=== PATIENT | female | born 1940 | race Caucasian/White ===

== ENCOUNTER → 2016-08-17 | Outpatient (CLI) | payer MEDICARE, OTHER ==
[2014-12-29 11:10] VITALS: BP 142/67
[~2016-08-17] MED LIST: ALEN70TA5 PO; AMLO5TAB2 PO; ASPI81TA2 PO; ATOR20TA58 PO; BUPIVACAINE MPF 0.25% 10 ML VIAL. ONE; CELE200C PO; Cefpodoxime Proxetil PO; ESOM40CA PO; ESOM40CA25 PO; ESTR0.5T PO; FENT1PAT21 TD; FLUC100T7 PO; GUAR1PAC2 PO; HYDR-2672 PO; HYDR-2762 PO; LISI-334 PO; LISI40TA PO; METO5TAB PO; MV,C1TAB19 PO; RANI300C PO; SERT100T8 PO; methylPREDNISolone ACETATE 40 MG/ML VIAL. ONE
--- NOTE | 2016-08-18 12:10 | PAIN ---
DATE OF SERVICE: 08/17/2016 DIAGNOSIS: Lumbar spondylosis with lumbar radiculopathy and post-lumbar laminectomy syndrome. HISTORY OF PRESENT ILLNESS: The patient is a 76-year-old female, who returns for followup status post radiofrequency ablation on 07/13/2016 of the left L3-L4, L4-L5, and L5-S1 levels. The patient reports she did about 50% better, but the pain has now moved into the left hip. She has significant pain. It is very sharp and stabbing and spastic with walking and weightbearing on the left side. The patient reports that the pain in her back is doing much better, about a 50% improvement overall, but has a constant aching pain in the left hip radiating to the left posterior thigh to the knee. The patient reports she is not using her spinal cord stimulator any longer since she felt it was not any longer helpful, but I encouraged her to try and get this reprogrammed in the future and she said she will consider it, but the pain in her hip is the chief complaint today with nagging and aching quality, again, rated 8 on a scale of 10. The patient reports no new motor or sensory deficits, no new bowel or bladder incontinence, but still significant pain, worse with standing, walking, and weightbearing. PHYSICAL EXAMINATION: VITAL SIGNS: The patient's blood pressure 115/61, pulse 88, respirations are 20, temperature 98.1 degrees Fahrenheit. Height is 4 feet 11 inches, weight is 139 pounds. GENERAL: The patient is awake, alert, oriented, appropriate, very pleasant demeanor. HEENT: Head shows normocephalic, atraumatic. Extraocular movements are intact, symmetrical. Oral cavity, mucous membranes are moist and pink. Dentition is intact. NECK: Shows anterior throat supple. CHEST: Shows breath sounds clear to auscultation bilaterally. HEART: Shows S1 and S2 clear. ABDOMEN: Soft, nontender, nondistended. No palpable organomegaly is noted. No rebound or guarding demonstrated. BACK: Shows spine grossly in midline. The patient's lumbar paraspinous musculature shows some well-healed surgical scarring in the midline. With palpation, musculature is moderately tender with palpation, but only diffusely. With palpation over the left gluteus, she has 2 very specific very firm rope-like musculature areas very tender on palpation without radiation, but with significant tenderness in the superior medial and in the inferior lateral aspect of the left gluteus, palpable. No such palpable areas on the right gluteus. The patient shows good range of motion of the hip, as well as the back with rotation with no discomfort today with extension of the lumbar spine at greater than 10 degrees, as well as forward at 45 degrees. Lower extremities show deep tendon reflexes at 1+ in the patellar and talocalcaneal tendons. The patient has well-healed surgical scar over the left knee. Motor exam is 5 on a scale 5 with dorsiflexion, extension, and equal bilaterally. Options were discussed with the patient. The patient's old chart was reviewed, as her current medication regimen updated. Current review of systems updated today as well. We discussed trigger point injections at the gluteus musculature in the areas identified on the left side. Risks were discussed including, but not limited to bleeding, infection, possibility of intravascular injection sequelae, spread of local anesthetic and numbness, side effects of steroid medication, and poor results regarding pain control. The patient understands and wishes to proceed. The patient will return to clinic in approximately 2 weeks for followup, was counseled on return appointment, activity level, and side effects to be aware of. Also, the patient was given physical therapy orders. She has a facility near her in [place], [place], that she would like to try and we wrote some orders to work with her back, as well as her left hip and lower extremities with balance, coordination, stretching and strengthening, trigger point massage, and heat and massage therapies. PROCEDURE NOTE DIAGNOSIS: Lumbar spondylosis with lumbar radiculopathy and post-lumbar laminectomy syndrome. PROCEDURE: Trigger point injections of the left gluteus x 2. Under sterile prep and drape using local anesthetic, medications injected, a total of 40 mg Depo-Medrol and a total of 4 mL of 0.25% bupivacaine after negative aspiration at each injection site. Condition on discharge is stable. The patient tolerated procedure well, had no complications. ARIC QUIROGA MD DR: KAPIL/bebo JOB#: [id number] / [id number]
== END ==
LOC: PNCL 13:05
PROVIDERS: ATTEND Anesthesiology
DX: M79.1 Myalgia (principal); M47.26 Other spondylosis with radiculopathy, lumbar region; M96.1 Postlaminectomy syndrome, not elsewhere classified; I10 Essential (primary) hypertension; K63.5 Polyp of colon; K64.9 Unspecified hemorrhoids; K40.90 Unilateral inguinal hernia, without obstruction or gangrene, not specified as recurrent; F32.9 Major depressive disorder, single episode, unspecified; F17.200 Nicotine dependence, unspecified, uncomplicated; Z96.652 Presence of left artificial knee joint; Z90.710 Acquired absence of both cervix and uterus; Z98.49 Cataract extraction status, unspecified eye
CPT/HCPCS: 20552; J1030; J3490; 20553

== ENCOUNTER → 2021-02-04 | Outpatient (CLI) | payer MEDICARE ==
[2014-12-29 11:10] VITALS: BP 142/67
[~2021-02-04] MED LIST changes: -ALEN70TA5 PO; +ALEN70TA71 PO; +AMLO-186 PO; -AMLO5TAB2 PO; +ASPI-630 PO; -ASPI81TA2 PO; -BUPIVACAINE MPF 0.25% 10 ML VIAL. ONE; -HYDR-2672 PO; -HYDR-2762 PO; +HYDR-2765 PO; +HYDR-2769 PO; +LISI-130 PO; -LISI-334 PO; +LISI20TA18 PO; -LISI40TA PO; +SERT-268 PO; -SERT100T8 PO; -methylPREDNISolone ACETATE 40 MG/ML VIAL. ONE
--- NOTE | 2021-02-04 22:17 | CARD ---
MR#: [id number] Date of Study: 02/04/2021 Ordering Physician: BIA ORTEGA, Referring Physician: BIA ORTEGA, Tech: Tremayne Ward [facility] APPROVED REPORT EXAM: Two-dimensional and M-mode echocardiogram with Doppler and color Doppler. Other Information Quality : GoodHR: 75bpm Rhythm : NSR INDICATION Hypertension/HCVD RISK FACTORS Hypertension 2D DIMENSIONS Left Atrium(2D)4.8 (1.6-4.0cm)IVSd1.1 (0.7-1.1cm) Aortic Root(2D)3.4 (2.0-3.7cm)LVDd4.6 (3.9-5.9cm) LVOT Diameter2.1 (1.8-2.4cm)PWd1.1 (0.7-1.1cm) LVDs3.1 (2.5-4.0cm)FS (%) 30.9 % SV55.6 mlLVEF(%)58.6 (>50%) Aortic Valve AoV Peak Skinny.145.6cm/sAoV VTI32.6cm AO Peak GR.8.5mmHgLVOT Peak Skinny.103.4cm/s AO Mean GR.5mmHgAVA (VMAX)2.46cm2 AI P 1/2 Zsnv311qt Mitral Valve MV E Dwalqekw251.8cm/sMV E Peak Gr.5mmHg MV DECEL [id number] A Dmqbubna12.4cm/s MV E Mean Gr.2mmHgE/A Ratio1.5 Pulmonary Valve PV Peak Eaflqpma48.5cm/s Tricuspid Valve TR P. Ttntfhwf412nq/sTR Peak Gr.37mmHg Pulmonary Vein S1 Eflzalvx75.8cm/sD2 Nopxqtjs66.0cm/s LEFT VENTRICLE The left ventricle is normal size. There is moderate concentric left ventricular hypertrophy. The lef t ventricular systolic function is normal and the ejection fraction is within normal range. EF 55% Th ere is normal LV segmental wall motion. Transmitral Doppler flow pattern is Grade II-pseudonormal archie ling dynamics. No left ventricle thrombus noted on this study. There is no ventricular septal defect visualized. There is no left ventricular aneurysm. There is no mass noted in the left ventricle. RIGHT VENTRICLE The right ventricle is normal size. There is normal right ventricular wall thickness. The right ventr icular systolic function is normal. ATRIA The left atrium is moderately dilated. The right atrium is mildly dilated. The interatrial septum is intact with no evidence for an atrial septal defect or patent foramen ovale as noted on 2-D or Dopple r imaging. AORTIC VALVE The aortic valve is mildly calcified. Doppler and Color Flow revealed trace to mild aortic regurgitat ion. There is no significant aortic valvular stenosis. There is no aortic valvular vegetation. MITRAL VALVE The mitral valve is moderately thickened. There is no evidence of mitral valve prolapse. There is no mitral valve stenosis. Doppler and Color-flow revealed mild mitral regurgitation. TRICUSPID VALVE The tricuspid valve is normal in structure and function. Doppler and Color Flow revealed trace tricus pid regurgitation. RVSP 38 mm Hg. There is no tricuspid valve prolapse or vegetation. There is no tri cuspid valve stenosis. PULMONIC VALVE Trivial Pulmonic regurgitation There is no pulmonic valvular stenosis. GREAT VESSELS The aortic root is normal in size. The ascending aorta is normal in size. The IVC is normal in size a nd collapses >50% with inspiration. PERICARDIAL EFFUSION There is no evidence of significant pericardial effusion. Critical Notification Critical Value: No <Conclusion> There is moderate concentric left ventricular hypertrophy. The left ventricular systolic function is normal and the ejection fraction is within normal range. EF 55% There is normal LV segmental wall motion. Signed by : Bia Ortega, Electronically Approved : 02/04/2021 22:16:47
== END ==
LOC: ECHO 09:42
PROVIDERS: ATTEND Internal Medicine Cardiovascular Disease
DX: I08.8 Other rheumatic multiple valve diseases (principal); I10 Essential (primary) hypertension
CPT/HCPCS: 93306

== ENCOUNTER → 2021-04-08 | Outpatient (CLI) | payer MEDICARE ==
[2014-12-29 11:10] VITALS: BP 142/67
--- NOTE | 2021-04-08 08:18 | RAD ---
INDICATION: Reason: LEG MASS / Spl. Instructions: / History: COMPARISON: None. FINDINGS: Focused ultrasound images are obtained of the left thigh soft tissues at the region of concern for ma ss. 56 x 35 x 13 mm masslike structure within the subcutaneous fat similar echogenicity to the adjacent f at. IMPRESSION: * There is a masslike structure within the subcutaneous soft tissues at the region of concern. Coul d be from causes such as a lipoma but the ultrasound appearance is not specific. Further workup optio n would include obtaining a follow-up to ensure no growth or if further evaluation is desired at this time MRI could be obtained to ensure that this is secondary to fatty tissue rather than a higher gra de soft tissue mass. Electronically signed by: Bentley Amin MD (04/08/2021 8:15 AM) [id number]
== END ==
LOC: US 09:26
PROVIDERS: ATTEND Surgery
DX: R22.42 Localized swelling, mass and lump, left lower limb (principal)
CPT/HCPCS: 76881

== ENCOUNTER 2021-04-21 10:05 | Day surgery (SDC) | payer MEDICARE ==
[~2021-04-21] VITALS: Ht 152.4 cm; Wt 62.0 kg
[~2021-04-21 10:05] MED LIST changes: +HYDROmorphone 2 MG/ML VIAL IVP PRN; +IV RINGERS,LACTATED 1000ML 1,000 ML IV SCH; +LOSA100T14 PO; +MORPHINE SULFATE 2 MG/ML INJ. IVP PRN; +PRAV40TA2 PO; +PROCHLORPERAZINE 10 MG/2 ML VIAL. IVP PRN; +ceFAZolin SODIUM IV Push 1 GM VIAL. IVP PRN; +fentaNYL PF VIAL 100 MCG/2 ML VIAL IVP PRN
[2021-04-21 10:44] VITALS: BP 183/79
[2021-04-21] MEDS ORDERED: PROPOFOL 10 MG/ML (20ML) VIAL. IV ONE (12:19)
[2021-04-21] MEDS ORDERED: LIDOCAINE 1% PF 5 ML VIAL. ONE (12:19)
[2021-04-21] MEDS ORDERED: DEXAMETHASONE SOD PHOS 4 MG/ML VIAL ONE (12:20)
[2021-04-21] MEDS ORDERED: ONDANSETRON PF 4 MG/2 ML VIAL. ONE (12:20)
[2021-04-21] MEDS ORDERED: fentaNYL PF VIAL 100 MCG/2 ML VIAL ONE (12:22)
[2021-04-21] MEDS ORDERED: LIDOCAINE 1%/EPI 1:100,000 20 ML VIAL. ONE (12:41)
[2021-04-21] MEDS ORDERED: SEVOFLURANE 31 TO 60 MINUTES. IH ONE (13:22)
--- NOTE | 2021-04-21 13:33 | PDOC4 ---
Operative Note Operative Note Operative Note: Preoperative Diagnosis: Left leg mass Postoperative Diagnosis: Same Procedure: Excision of left leg mass Surgeon: Dustin Anesthesia: General EBL: 5 mL Specimen: Left leg mass to pathology, subcutaneous, 6 x 5 cm with no additional margins, consistent with lipoma Drains: None Complications: None Indication: The patient is an 81-year-old female who was referred due to a mass on the anterior aspect of her left thigh. It has enlarged and she is requesting excision. The risks of surgery were discussed which include bleeding, infection, recurrence, pain, anesthetic risk, potential need for additional surgery procedure. She understands and would like to proceed. Description: The patient was taken to the operating room and placed supine on the operating table. General anesthesia was performed. The anterior left thigh was prepped with ChloraPrep and draped in a standard surgical manner. A transverse incision was made overlying the mass. Cautery dissection was carried down into the subcutaneous tissues. The mass was fairly superficial and comprised of lobular adipose tissue consistent with a lipoma. The mass was readily mobilized from the surrounding tissues using cautery and it was fully excised. The mass measured 6 x 5 cm and no additional margins were included. Hemostasis was achieved with cautery. No other gross abnormalities were identified. The subcutaneous tissue was approximated with 3-0 Vicryl. The skin was closed with 4-0 Monocryl. Steri-Strips and a sterile dressing were applied. The patient tolerated the procedure well and was sent to the recovery room in stable condition. At the end of the case all counts were correct. RYAN DANIELS MD Apr 21, 2021 13:33
[2021-04-21] MEDS ORDERED: HYDR-2765 PO (13:35)
--- NOTE | 2021-04-21 13:37 | DISCH ---
DISCHARGE INSTRUCTIONS Condition on Discharge Condition on Discharge: Stable Activity After Discharge Activity Instructions for Disc: Activity as tolerated Diet after Discharge Diet after Discharge: Regular Wound Incision Care Wound/Incision Care: Other, see below (keep dressing clean and dry X 72 hours, may then remove and shower) Follow-Up Follow up with: Dr Daniels in 2 weeks in office, call for appointment [phone] RYAN DANIELS MD Apr 21, 2021 13:37
[2021-04-21 13:46] VITALS: BP 166/67
[2021-04-21] MEDS ORDERED: HYDROcodone/APAP 7.5/325MG 1 TAB TABLET ONE (13:49)
[2021-04-21] MEDS ORDERED: HYDROcodone/APAP 7.5/325MG 1 TAB TABLET PO ONE (14:00)
--- NOTE | 2021-04-22 16:07 | PATHOLOGY ---
[facility] Accession Number: [id number] . 01 Material submitted: . leg - LEFT LEG MASS. Modifiers: left . 02 Diagnosis: Adipose tissue, left leg mass excision: - Lipoma. ([facility]:bone tender; 04/22/2021) MBR 04/22/2021 1335 Local . 02 Comment: There is no evidence of malignancy. (M:gerry; 04/22/2021) . 02 Electronically signed: . Moustapha David MD, Pathologist NPI- [id number] . 01 Gross description: . The specimen is received in formalin, labeled "[place], [place], left leg mass". It consists of a bravo-yellow, focally disrupted, irregular fatty tissue segment measuring 7.0 x 6.0 x 1.5 cm. The external surface is inked green. Sectioning reveals bravo-yellow fatty cut surfaces. Collection Agent sections are submitted in A1-A3. (MRF; 04/21/2021) MFE/MFE 04/21/20212028 Local . 02 Pathologist provided ICD-10: D17.24 . 02 CPT . 139344 Specimen Comment: A courtesy copy of this report has been sent to [phone], [phone] Specimen Comment: [id number] Specimen Comment: Report sent to / DR TAPIA Performed at: 01 [facility] [address], [place] [id number] MD Jan Hernández MD Phone: [phone] Performed at: 02 [facility] [address], [place] [id number] MD Moustapha David MD Phone: [phone]
== END 2021-04-21 14:29 | disposition home or self-care (01) ==
LOC: SURG 10:05
PROVIDERS: ATTEND Surgery
DX: R22.42 Localized swelling, mass and lump, left lower limb (principal); D17.24 Benign lipomatous neoplasm of skin and subcutaneous tissue of left leg; I10 Essential (primary) hypertension; E78.00 Pure hypercholesterolemia, unspecified; K21.9 Gastro-esophageal reflux disease without esophagitis; F32.9 Major depressive disorder, single episode, unspecified; M06.9 Rheumatoid arthritis, unspecified; M81.0 Age-related osteoporosis without current pathological fracture; Z87.891 Personal history of nicotine dependence; Z90.710 Acquired absence of both cervix and uterus; Z98.890 Other specified postprocedural states; Z79.82 Long term (current) use of aspirin; Z79.899 Other long term (current) drug therapy; Z82.49 Family history of ischemic heart disease and other diseases of the circulatory system
CPT/HCPCS: 27337; J0690; J1100; J2405; J2704; J3010; J3490; 88304; A4364; A4452; A4930; A6402

== ENCOUNTER → 2021-10-01 | Outpatient (CLI) | payer MEDICARE ==
[~2021-10-01] MED LIST changes: +BUPIVACAINE MPF 0.5% 30 ML VIAL. INJ ONE; -HYDROmorphone 2 MG/ML VIAL IVP PRN; +IOHEXOL 300 MG/ML 50 ML VIAL. IJ ONE; -IV RINGERS,LACTATED 1000ML 1,000 ML IV SCH; +LIDOCAINE 1% Multi-Dose 20 ML VIAL. INJ ONE; -MORPHINE SULFATE 2 MG/ML INJ. IVP PRN; -PROCHLORPERAZINE 10 MG/2 ML VIAL. IVP PRN; +TRIAMCINOLONE ACETONIDE 40 MG/ML VIAL. ID ONE; -ceFAZolin SODIUM IV Push 1 GM VIAL. IVP PRN; -fentaNYL PF VIAL 100 MCG/2 ML VIAL IVP PRN
--- NOTE | 2021-10-01 12:31 | RAD ---
EXAM: Left hip injection WITH Fluoroscopic guidance CLINICAL HISTORY: Left hip pain. COMPARISON: None pertinent TECHNIQUE: The patient was informed of the indications and alternatives for this procedure as well as risks and benefits. No immediate contraindication identified. The patient provided informed, written consent. Laterality was confirmed by the entire team following a time out. Following initial flouroscopic localization, a suitable area was sterilely prepped and draped. Local anesthesia was administered with 1% lidocaine. With fluoroscopic observation, a 22 gauge spinal needl e was advanced into the Left hip joint with confirmation of intra-articular position with infusion of a few cc of iodinated contrast. Subsequent infusion 1 mL Kenalog 40, 1 mL 1% lidocaine, 2 mL Sensorc sergo. Hemostasis with local pressure. Local clinical exam negative for immediate complication. Total Fluoroscopy time: 0.1 minutes Total spot images taken: 1 IMPRESSION: Successful intra-articular injection Left hip per clinical request. Electronically signed by: Ovidio Merritt MD (10/01/2021 12:29 PM) [id number]
== END | disposition home or self-care (01) ==
LOC: RAD 09:24
PROVIDERS: ATTEND Orthopaedic Surgery Sports Medicine
DX: M25.552 Pain in left hip (principal); I10 Essential (primary) hypertension; E78.00 Pure hypercholesterolemia, unspecified; K21.9 Gastro-esophageal reflux disease without esophagitis; M81.0 Age-related osteoporosis without current pathological fracture; M06.9 Rheumatoid arthritis, unspecified; F32.9 Major depressive disorder, single episode, unspecified; Z87.891 Personal history of nicotine dependence; Z90.710 Acquired absence of both cervix and uterus; Z98.890 Other specified postprocedural states; Z79.899 Other long term (current) drug therapy
CPT/HCPCS: 20610; 77002; J3301; J3490; Q9967

== ENCOUNTER 2021-10-17 14:30 | Emergency (ER) | payer MEDICARE ==
[~2021-10-17] VITALS: Ht 152.4 cm; Wt 62.7 kg
[~2021-10-17 14:30] MED LIST changes: -BUPIVACAINE MPF 0.5% 30 ML VIAL. INJ ONE; -IOHEXOL 300 MG/ML 50 ML VIAL. IJ ONE; -LIDOCAINE 1% Multi-Dose 20 ML VIAL. INJ ONE; -TRIAMCINOLONE ACETONIDE 40 MG/ML VIAL. ID ONE
[2021-10-17 14:44] VITALS: BP 103/57
--- NOTE | 2021-10-17 15:28 | RAD ---
Exam performed: X-ray left knee and pelvis with left hip. HISTORY: Left hip pain. DATE OF SERVICE: 10/17/2021. COMPARISON: Images obtained during left hip injection from 10/01/2021. FINDINGS: Single AP view pelvis and AP and frog-leg lateral view of the left hip are obtained. There is normal alignment of the right hip joint. There is severe joint space narrowing and flattening of the left fe moral head with periarticular sclerosis and probable subchondral cystic changes. There is no acute fr acture or dislocation. There are surgical tuyet in the midline pelvis. Battery pack is seen project ing over the right ilium bone with wire leads projecting superiorly. Nonspecific bowel gas pattern wi th scattered stool in the colon. AP, lateral and oblique views of the left knee demonstrate postoperative changes of total left knee a rthroplasty with prosthesis in satisfactory position. There is no evidence of hardware loosening. No fracture or joint effusion seen. IMPRESSION: Advanced degenerative changes involving the left hip with chronic changes left femoral head. Status post total left knee arthroplasty without acute findings. Electronically signed by: Kailey Pedro MD (10/17/2021 3:26 PM) DILCIA
--- NOTE | 2021-10-17 16:24 | PHYS DOC ---
Past Medical History Past Medical History: Arthritis, Hypertension Additional Past Medical Histor: back pain Past Surgical History: Knee Replacement Additional Past Surgical Histo: back surgery, tumor removed from back Smoking Status: Former Smoker Alcohol Use: None Drug Use: None General Adult EDM: Chief Complaint: HIP PAIN HPI: HPI: Patient is a 81 year old female with history of hypertension, arthritis, who presents to the ED today complaining of a sharp intermittent 8 out of 10 left knee and left hip pain that has been going on for "weeks". Patient denies any injuries. She states she has been following up with her own PCP and is curren tly on 75 mcg of fentanyl and received cortisone shots last week for her pain. Patient states her pain is worse on weightbearing and weather changes. She states her pain medicine is helping but not clearing the pain. Review of Systems: Review of Systems: Constitutional: Denies fever or chills. [] Musculoskeletal: Reports left knee and left hip pain Integument: Denies rash. [] Neurologic: Denies headache, focal weakness or sensory changes. [] Psychiatric: Denies depression or anxiety. [] Heart Score: C/O Chest Pain: N/A Risk Factors: Risk Factors: DM, Current or recent (<one month) smoker, HTN, HLP, family history of CAD, obesity. Risk Scores: Score 0 - 3: 2.5% MACE over next 6 weeks - Discharge Home Score 4 - 6: 20.3% MACE over next 6 weeks - Admit for Clinical Observation Score 7 - 10: 72.7% MACE over next 6 weeks - Early Invasive Strategies Allergies: Allergies: Allergies Coded Allergies Type Severity Reaction Last Updated Verified No Known Drug Allergies 04/21/21 No Physical Exam: PE: Constitutional: Well developed, well nourished, no acute distress, non-toxic appearance. [] Skin: Warm, dry, no erythema, no rash. [] Back: No tenderness, no CVA tenderness. [] Extremities: Left hip and left knee with no obvious deformities. No tenderness on exam. Limited range of motion to the left hip due to pain but patient able to flex and extend the left lower extremity in the hip and knee. Full range of motion to the left knee. Negative Christ sign, negative Kip sign, negative anterior posterior drawer sign. +2 left pedal pulse. Cap refill less than 2 seconds her left lower extremity Neurologic: Alert and oriented X 3, normal motor function, normal sensory function, no focal deficits noted. [] Psychologic: Affect normal, judgement normal, mood normal. [] Current Patient Data: Vital Signs: Vital Signs Date Time Temp Pulse Resp B/P (MAP) Pulse Ox O2 Delivery O2 Flow Rate FiO2 10/17/21 14:44 97.8 83 18 103/57 (72) 96 97.8 EKG: EKG: [] Radiology/Procedures: Radiology/Procedures: []PROCEDURE: KNEE LEFT 3V Exam performed: X-ray left knee and pelvis with left hip. HISTORY: Left hip pain. DATE OF SERVICE: 10/17/2021. COMPARISON: Images obtained during left hip injection from 10/01/2021. FINDINGS: Single AP view pelvis and AP and frog-leg lateral view of the left hip are obtained. There is normal alignment of the right hip joint. There is severe joint space narrowing and flattening of the left femoral head with periarticular sclerosis and probable subchondral cystic changes. There is no acute fracture or dislocation. There are surgical tuyet in the midline pelvis. Battery pack is seen projecting over the right ilium bone with wire leads projecting superiorly. Nonspecific bowel gas pattern with scattered stool in the colon. AP, lateral and oblique views of the left knee demonstrate postoperative changes of total left knee arthroplasty with prosthesis in satisfactory position. There is no evidence of hardware loosening. No fracture or joint effusion seen. IMPRESSION: Advanced degenerative changes involving the left hip with chronic changes left femoral head. Status post total left knee arthroplasty without acute findings. Electronically signed by: Kailey Pedro MD (10/17/2021 3:26 PM) [facility] DICTATED and SIGNED BY: KAILEY PEDRO MD DATE: 10/17/21 1521 Course & Med Decision Making: Course & Med Decision Making Pertinent Labs and Imaging studies reviewed. (See chart for details) This is a 81-year-old female patient presented to the ED today with left hip and left knee pain symptoms began weeks ago. Patient is currently on fentanyl patches as well as cortisone shots. Left knee x-rays are negative for any acute findings, left hip x-rays noted for DJD Discharge home. Follow-up with Navin Nguyen Disclaimer: Wendy Disclaimer: This electronic medical record was generated, in whole or in part, using a voice recognition dictation system. Departure Departure Impression: Primary Impression: Degenerative joint disease of left hip Qualified Codes: M16.12 - Unilateral primary osteoarthritis, left hip Additional Impression: Knee pain, chronic Qualified Codes: M25.562 - Pain in left knee; G89.29 - Other chronic pain Disposition: 01 HOME / SELF CARE / HOMELESS Condition: STABLE Referrals: MERCEDEZ TAPIA MD (PCP) MARCIE BENNETT II, MD follow up in one week Patient Instructions: Arthritis, Degenerative-Brief, Knee Pain, [id number]-lo-[id number] Additional Instructions: You were evaluated in the emergency room for left hip and left knee pain. Your left knee x-rays are negative for any acute findings, your left hip x-rays were noted for arthritis. Please follow-up with your orthopedic doctor or the provided orthopedic doctor in 1 to 2 weeks NICHOLAS SHEARER APRN Oct 17, 2021 16:24
== END 2021-10-17 16:32 | disposition home or self-care (01) ==
LOC: ER 14:30
DX: M16.12 Unilateral primary osteoarthritis, left hip (principal); M25.562 Pain in left knee; G89.29 Other chronic pain; I10 Essential (primary) hypertension; Z87.891 Personal history of nicotine dependence; Z96.652 Presence of left artificial knee joint
CPT/HCPCS: 73502; 73562; 99283

== ENCOUNTER → 2021-11-11 | Outpatient (CLI) | payer MEDICARE ==
[2021-10-17 14:44] VITALS: BP 103/57
[~2021-11-11] MED LIST changes: +CHOL200010 PO; +VENL75CA6 PO
[2021-11-11 12:57] LABS: BASO # 0.1 x10^3/uL (0.0-0.2); BASO % 1 % (0-3); EOS # 0.2 x10^3/uL (0.0-0.7); EOS % 3 % (0-3); HEMATOCRIT 31.6 % (36.0-47.0); HEMOGLOBIN 10.4 g/dL (12.0-15.5); LYMPH # 1.3 x10^3/uL (1.0-4.8); LYMPH % 15 % (24-48); MEAN CORPUSCULAR HEMOGLOBIN 29 pg (25-35); MEAN CORPUSCULAR HGB CONC 33 g/dL (31-37); MEAN CORPUSCULAR VOLUME 89 fL (79-100); MONO % 11 % (0-9); NEUT # 6.2 x10^3/uL (1.8-7.7); NEUT % 70 % (31-73); PLATELET COUNT 582 x10^3/uL (140-400); RED BLOOD COUNT 3.54 x10^6/uL (3.50-5.40); RED CELL DISTRIBUTION WIDTH 12.7 % (11.5-14.5); WHITE BLOOD COUNT 8.8 x10^3/uL (4.0-11.0)
[2021-11-11 13:06] LABS: PROTHROMBIN TIME PATIENT 13.1 SEC (11.7-14.0)
[2021-11-11 13:10] LABS: ALBUMIN 2.6 g/dL (3.4-5.0); CALCIUM 9.3 mg/dL (8.5-10.1); CREATININE 1.2 mg/dL (0.6-1.0); GFR 43.1; POTASSIUM 4.3 mmol/L (3.5-5.1)
--- NOTE | 2021-11-11 13:16 | EKG ---
[facility] [address] [place] [address] Test Date: 2021-11-11 Test Time: 13:15:30 Pat Name: MERI SINGLETONLAND Department: Room: Gender: F [employer] Supervisor: RITIKA : 1940 Requested By: MORGAN REESE Order Number: [id number] Reading MD: Gordy Gonzalez Measurements Intervals [place] Rate: 77 P: 60 HI: 182 QRS: -65 QRSD: 94 T: 59 QT: 388 QTc: 441 Interpretive Statements SINUS RHYTHM LEFT ANTERIOR FASCICULAR BLOCK Electronically Signed On 11-12-2021 13:18:52 CDT by Gordy Gonzalez
--- NOTE | 2021-11-11 14:36 | RAD ---
XR CHEST 2V INDICATION: Pre op chest, hip surgery . COMPARISON STUDY: 05/03/2016. FINDINGS: Lungs: Hyperexpanded lung volume. No pulmonary mass or consolidation. The tracheobronchial tree and h ilar structures are normal. Pleura: No pleural effusion or pneumothorax. Heart and Mediastinum: Cardiomegaly. Tortuous atherosclerotic aorta. Bones and Soft Tissues: S-shaped thoracolumbar curvature. Multilevel degenerative disc disease. Spina l stimulator device leads. IMPRESSION: No consolidation. Electronically signed by: Mark Ram MD (11/11/2021 2:33 PM) [id number]
[2021-11-13 11:11] LABS: HEMOGLOBIN A1C 6.4 % (4.8-5.6)
== END ==
LOC: SURGPAT 12:09
PROVIDERS: ATTEND Orthopaedic Surgery
DX: Z01.818 Encounter for other preprocedural examination (principal); I44.4 Left anterior fascicular block; I51.7 Cardiomegaly; I70.0 Atherosclerosis of aorta; M51.34 Other intervertebral disc degeneration, thoracic region; M43.8X5 Other specified deforming dorsopathies, thoracolumbar region; M16.12 Unilateral primary osteoarthritis, left hip
CPT/HCPCS: 36415; 71046; 80048; 82040; 82306; 83036; 85025; 85610; 85651; 85730; 87641; 93005

== ENCOUNTER 2021-12-01 05:44 | Observation (INO) | payer MEDICARE ==
[2021-11-11 12:37] VITALS: BP 98/48
[2021-12-01] VITALS (9 sets, daily range): BP systolic 107–134; BP diastolic 32–79
[~2021-12-01] VITALS: Ht 152.4 cm; Wt 60.9 kg
[2021-12-01] MEDS ORDERED: ACETAMINOPHEN 500 MG TABLET PO PRN (06:00)
[2021-12-01] MEDS ORDERED: fentaNYL PF VIAL 100 MCG/2 ML VIAL IVP PRN ×2 (06:00)
[2021-12-01] MEDS ORDERED: MORPHINE SULFATE 2 MG/ML INJ. IVP PRN (06:00)
[2021-12-01] MEDS ORDERED: TRANEXAMIC ACID 1,000 MG in IV NS 50ML -- 1ST BAG INJ ONE (06:00)
[2021-12-01] MEDS ORDERED: PROCHLORPERAZINE 10 MG/2 ML VIAL. IVP PRN (06:00)
[2021-12-01] MEDS ORDERED: HYDROmorphone 2 MG/ML INJ. IVP PRN (06:00)
[2021-12-01] MEDS ORDERED: TV=62ml MORPHINE 5 MG, KETOROLAC 30 MG, ROPIV, EPI INT ART ONE (06:00)
[2021-12-01] MEDS ORDERED: GABAPENTIN 300 MG CAPSULE. PO PRN (06:00)
[2021-12-01] MEDS ORDERED: IV RINGERS,LACTATED 1000ML 1,000 ML IV SCH (06:00)
[2021-12-01] MEDS ORDERED: MELOXICAM 7.5 MG TABLET PO PRN (06:00)
[2021-12-01] MEDS ORDERED: ROCURONIUM 50 MG/5 ML VIAL. ONE (06:31)
[2021-12-01] MEDS ORDERED: LIDOCAINE 2% PF 5 ML VIAL. ONE (06:31)
[2021-12-01] MEDS ORDERED: PROPOFOL 10 MG/ML (20ML) VIAL. IV ONE (06:31)
[2021-12-01] MEDS ORDERED: ONDANSETRON PF 4 MG/2 ML VIAL. ONE (06:31)
[2021-12-01] MEDS ORDERED: DEXAMETHASONE SOD PHOS 4 MG/ML VIAL ONE (06:31)
[2021-12-01] MEDS ORDERED: TRANEXAMIC ACID in NS IVPB 100 ML ONE (06:56)
[2021-12-01] MEDS ORDERED: VANCOMYCIN 1 GM VIAL. ONE (06:56)
[2021-12-01] MEDS ORDERED: ceFAZolin 2GM PREMIX 2 GM/50 ML BAG IV ONE (07:00)
[2021-12-01] MEDS ORDERED: fentaNYL PF VIAL 100 MCG/2 ML VIAL ONE ×2 (07:16→08:26)
[2021-12-01] MEDS ORDERED: TRANEXAMIC ACID 1,000 MG in IV NS 50ML -- 2ND BAG INJ ONE (08:00)
[2021-12-01] MEDS ORDERED: GLYCOPYRROLATE 1 MG/5 ML VIAL. ONE (08:45)
[2021-12-01] MEDS ORDERED: NEOSTIGMINE METHYLSULFATE 5 MG/5 ML SYRINGE. ONE (08:45)
[2021-12-01] MEDS ORDERED: 0.9 % SODIUM CHLORIDE 10 ML DISP.SYRIN. IV PRN (09:00)
[2021-12-01] MEDS ORDERED: DEXTROSE 50% 25 GM / 50ML DISP.SYRIN. IV PRN (09:00)
[2021-12-01] MEDS ORDERED: CALCIUM CARBONATE 500 MG TAB.CHEW PO PRN (09:00)
[2021-12-01] MEDS ORDERED: diphenhydrAMINE 50 MG/ML VIAL IVP PRN (09:00)
[2021-12-01] MEDS ORDERED: IV DEXTROSE 5% 250 ML BAG. IV PRN (09:00)
--- NOTE | 2021-12-01 09:05 | PDOC4 ---
OPERATIVE NOTE Date: Date: December 01, 2021 Pre-Op Diagnosis: 1. 81-year-old female severe DJD left hip 2. Avascular necrosis left hip Post-Op Diagnosis: 1. 81-year-old female severe DJD left hip 2. Avascular necrosis left hip 3. Pathologic fracture left hip. 4. Status post left hip hemiarthroplasty Procedure Performed: 1. Left hip hemiarthroplasty Surgeon: Geovani Anesthesia Type: General Blood Loss: 250 cc Specimans Obtained: Soft tissue and bone cultures from posterior left hip musculature and left proximal femur Complications: Patient tolerated procedure well without any apparent intraoperative complications. Operative Note: See dictation. SUKUMAR PARSONS December 01, 2021 09:05
[2021-12-01] MEDS: MORPHINE SULFATE 2 MG/ML INJ. IVP PRN ×2 (11:00→20:26)
[2021-12-01] MEDS: IV NORMAL SALINE 1000ML BAG 1,000 ML IV SCH (11:01)
[2021-12-01] MEDS: SENNOSIDES/DOCUSATE 8.6/50MG TABLET. PO SCH (12:00)
[2021-12-01] MEDS: ONDANSETRON ODT 4 MG TAB.RAPDIS. PO SCH ×2 (12:00→17:07)
[2021-12-01] MEDS: ONDANSETRON PF 4 MG/2 ML VIAL. IVP SCH ×2 (12:00→17:07)
[2021-12-01] MEDS: oxyCODONE IR 5 MG TABLET PO PRN ×2 (13:34→17:15)
--- NOTE | 2021-12-01 14:02 | OP ---
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 POSTOPERATIVE DIAGNOSIS: Pathologic fracture, left hip. PROCEDURE: Left hip hemiarthroplasty. SURGEON: Luciano Olivo Jr, DO DIRECTOR DIGITAL CATALOGUE: CHUY Mullins ANESTHESIA: General. COMPLICATIONS: None. ESTIMATED BLOOD LOSS: 250 mL. PATHOLOGY: Portions of the femoral head, femoral neck and soft tissue, left hip. DESCRIPTION OF PROCEDURE: The patient was taken to the operative suite, given a general anesthetic, placed in lateral decubitus position. The left hip was then prepped and draped in a sterile fashion. Incision was made through skin and subcutaneous tissues down to the iliotibial band, which was split in line with the skin incision. Immediately, there was noted to be changes within the gluteus medius musculature. However, the inferior one-third almost one-half of this was removed from the insertion site of the greater trochanter and this was retracted anteriorly. There continued to be abnormal tissue, which appeared to be changed from what I would determine to be normal muscle tissue as well as deeper capsular tissue; therefore tissue was removed, which appear that way and was sent to the back table. This hip was opened up in an H fashion and immediately there was noted to be a fracture along the area of the femoral neck down to the area about a fingerbreadth above the lesser trochanter all the way to the trochanteric region, but not involving the trochanter at all. This appeared to be a subcapital type of pathologic fracture and unfortunately the head could not be removed due to the fact that it was in multiple pieces. Therefore, using a rongeur as well as pickups and Maru, this was removed in its entirety. However, the largest piece was actually approximately a fifth of the size of the normal femoral head. This was sized out on the acetabular side, which was noted to have some degenerative changes, but again no pathologic area to this region. A 44 mm outer diameter acetabulum. Due to the nature of the current situation, the idea of reaming was determined to be dangerous for the patient and there were no obvious lesions within the acetabular side of the joint. Therefore, this was irrigated and swept multiple times. The wash box operator was used to open up the femur after the femoral neck was cut only approximately 3 mm and the tissue within that wash box operator appeared to be somewhat abnormal more proximal than distal was sent to pathology as well. The IM guide was then placed and then broaching began at size 0 and continued all the way up to size 3 and the size 3 femur was noted to be appropriate using standard neck length of 132-degree neck angle and a +0, 26 mm femoral head. This was placed in the bipolar component, reduced manually, noted to be stable in all ranges of motion. This was manually dislocated and all trials were removed. The actual femoral component was placed followed by the bipolar replacement as with sizes as noted. This was again relocated. All pathologic tissue, which could be identified or abnormal tissue was removed as much as possible. Bleeding was coagulated using Bovie knife. The capsule was then reapproximated. The gluteus medius and minimus were reapproximated to their insertion site. Iliotibial band, superficial tissues and skin was reapproximated. Sterile dressing was applied. The patient was then taken from the operative bed to the postoperative bed, taken to the PACU in stable condition. POSTOP NOTE: I did speak with her 3 sons about the findings and the fact that she had an acute fracture. They did tell me she fell 2 weeks ago and had significant pain at that point, but that had been relieved in the last 4-5 days and was not quite as significant but she was having increased difficulty with ambulation. They deny any history of any cancer or any type of those type of diseases processes. We have talked with them therefore about waiting for pathology. They did note that I did talk with the pathologist intraoperatively, showed him the tissue and talked with him about the findings and they will be sending that to him for evaluation and he will let me know as soon as possible. Certainly hope and pray that is nothing pathologic at this point. ALEJANDRO/DONTE/[facility] – [place] DR: ALEJANDRO/bebo TID: [id number]
--- NOTE | 2021-12-01 14:07 | HP ---
DATE OF SERVICE: 12/01/2021 ADMIT DATE: 12/01/2021 CHIEF COMPLAINT: Postop left hip replacement with avascular necrosis and possible pathologic fracture with possible cancer in the hip. HISTORY OF PRESENT ILLNESS: The patient is a pleasant elderly female who underwent a left hip replacement this morning with Dr. Olivo. The patient is now being admitted to the medical floor where she is being examined in room 430 postoperatively. PAST MEDICAL HISTORY: Pathological hip fracture, hyperlipidemia, hypertension, chronic pain, muscle spasms. ALLERGIES: ATORVASTATIN, HYDROCHLOROTHIAZIDE, LISINOPRIL. FAMILY HISTORY: Diabetes. SOCIAL HISTORY: She does not drink, smoke or take drugs. MEDICATIONS: Reviewed. She is on pravastatin, amlodipine, losartan, aspirin, fentanyl patches, venlafaxine, estradiol, and vitamin D. REVIEW OF SYSTEMS: Unable to obtain. She is sedated. PHYSICAL EXAMINATION: VITALS: Within normal limits and are stable. GENERAL: She is sedated. She woke up briefly, but then went back to sleep. HEENT: Normocephalic atraumatic, external auditory canals are patent. EYES: Extraocular muscles are intact, pupils are equally round and reactive to light and accommodation. MUSCULOSKELETAL: Well developed, well nourished, good range of motion. ENDOCRINE: No thyromegaly was palpated. LYMPHATICS: No cervical chain or axillary nodes were noted. HEMATOPOIETIC: No bruising. NECK: Supple, no JVD, no thyromegaly was noted. LUNGS: Clear to auscultation in all lung dos santos without rhonchi or wheezing. HEART: RRR, S1, S2 present. Peripheral pulses intact, no obvious murmurs were noted. ABDOMEN: Soft, nontender. Positive bowel sounds no organomegaly, normal bowel sounds. EXTREMITIES: She has clean, dry, intact dressing on the left. NEUROLOGIC: She is sedated. She woke up briefly, but then went back to sleep. PSYCHIATRIC: She is sedated. She woke up briefly, but then went back to sleep. SKIN: No ulcerations or rashes, good skin turgor, no jaundice. VASCULAR: Good capillary refill, neurovascular bundle appears to be intact. LABORATORY DATA: COVID testing is negative. Other lab is pending. ASSESSMENT AND PLAN: Postop left hip replacement with a pathological fracture concerning for possible cancer. The patient will be admitted. We will start wound care, try to resume her home meds, IV fluids, p.r.n. Zofran. Deep venous thrombosis prophylaxis. P.r.n. pain meds. Trend labs. Await the pathology specimen. GILMAR/SEEMA/ANA DR: GILMAR/bebo TID: [id number]
[2021-12-01] MEDS ORDERED: fentaNYL 100MCG/HR PATCH 1 PATCH PATCH TD SCH (15:00)
--- NOTE | 2021-12-01 15:56 | RAD ---
EXAM: XR LT HIP (WITH OR WITHOUT PELVIS) 2 VIEWS 12/01/2021 9:26 AM CLINICAL INDICATION: Postop left hip arthroplasty COMPARISON: Left hip radiograph 10/17/2021 TECHNIQUE: AP view of the pelvis and crosstable lateral view of the left hip FINDINGS: There is a new left total hip prosthesis. No periprosthetic fracture. There is postoperati ve gas in the left thigh. There midline surgical tuyet. A stimulator device is seen over the right hemipelvis. IMPRESSION: Expected postsurgical changes of left total hip arthroplasty. Electronically signed by: Nika Tomas MD (12/01/2021 3:54 PM) [id number]
[2021-12-02] MEDS: MORPHINE SULFATE 2 MG/ML INJ. IVP PRN ×2 (01:23→08:25)
[2021-12-02 03:00] VITALS: BP 139/50
[2021-12-02] MEDS: ENOXAPARIN 30 MG/0.3 ML SYRINGE. SQ SCH (05:00)
[2021-12-02] MEDS: ONDANSETRON ODT 4 MG TAB.RAPDIS. PO SCH ×2 (06:00)
[2021-12-02] MEDS: ONDANSETRON PF 4 MG/2 ML VIAL. IVP SCH ×2 (06:00)
[2021-12-02] MEDS ORDERED: ENOXAPARIN 40 MG/0.4 ML SYRINGE. SQ SCH (06:00)
[2021-12-02] MEDS ORDERED: MAGNESIUM HYDROXIDE 2,400 MG/30 ML ORAL.SUSP. PO PRN (06:00)
[2021-12-02 07:00] VITALS: BP 148/57
[2021-12-02 07:18] LABS: HEMATOCRIT 27.2 % (36.0-47.0); RED BLOOD COUNT 3.11 x10^6/uL (3.50-5.40); RED CELL DISTRIBUTION WIDTH 13.3 % (11.5-14.5); WHITE BLOOD COUNT 11.1 x10^3/uL (4.0-11.0)
[2021-12-02 07:29] LABS: CREATININE 1.1 mg/dL (0.6-1.0); GFR 47.7
[2021-12-02] MEDS: ASPIRIN CHEWABLE 81 MG TABLET. PO SCH (08:22)
[2021-12-02] MEDS: SENNOSIDES/DOCUSATE 8.6/50MG TABLET. PO SCH (08:22)
[2021-12-02] MEDS: VENLAFAXINE XR 37.5 MG CAP.ER.24H. PO SCH (08:22)
[2021-12-02] MEDS: ESTRADIOL 1 MG TABLET. PO SCH (08:23)
[2021-12-02] MEDS: ACETAMINOPHEN 500 MG TABLET PO SCH ×3 (08:23→20:39)
--- NOTE | 2021-12-02 08:49 | PDOC ---
PROGRESS NOTES Date of Service DATE: 12/02/21 TIME: 08:40 Subjective Subjective POD #1 s/p L hip hemiarthroplasty Patient was seen and examined this morning on rounds. Currently returning back to room with therapy staff. Pain to left hip postoperatively with mobilization. Tolerating p.o. intake. Slightly confused as patient does not recall having had surgery. Denies any acute complaints at this time. Objective Vital Signs Vital Signs Date Time Temp Pulse Resp B/P (MAP) Pulse Ox O2 Delivery O2 Flow Rate FiO2 12/02/21 08:22 88 139/50 12/02/21 03:00 98.0 18 95 98.0 12/02/21 01:55 Room Air 12/01/21 09:36 2.0 Physical Exam Orthopedic examination of the left hip: Surgical dressing intact. Minimal drai nage. Compartment soft left lower extremity soft and compressible. Cap refill brisk. Left lower extremity warm and perfused. EHL/FHL intact. Plantarflexion/dorsiflexion intact. Sensation to light touch reported to be intact throughout all dermatomes. Calf nontender. Negative Homans. No evidence of thrombus. Labs Laboratory Tests Test 12/01/21 06:30 12/02/21 07:05 POC SARS CoV-2 Antigen Negative (NEGATIVE) White Blood Count 11.1 x10^3/uL (4.0-11.0) Red Blood Count 3.11 x10^6/uL (3.50-5.40) Hemoglobin 9.0 g/dL (12.0-15.5) Hematocrit 27.2 % (36.0-47.0) Mean Corpuscular Volume 87 fL (79-100) Mean Corpuscular Hemoglobin 29 pg (25-35) Mean Corpuscular Hemoglobin Concent 33 g/dL (31-37) Red Cell Distribution Width 13.3 % (11.5-14.5) Platelet Count 423 x10^3/uL (140-400) Creatinine 1.1 mg/dL (0.6-1.0) Estimated GFR (Cockcroft-Gault) 47.7 Laboratory Tests Test 12/02/21 07:05 White Blood Count 11.1 x10^3/uL (4.0-11.0) Red Blood Count 3.11 x10^6/uL (3.50-5.40) Hemoglobin 9.0 g/dL (12.0-15.5) Hematocrit 27.2 % (36.0-47.0) Mean Corpuscular Volume 87 fL (79-100) Mean Corpuscular Hemoglobin 29 pg (25-35) Mean Corpuscular Hemoglobin Concent 33 g/dL (31-37) Red Cell Distribution Width 13.3 % (11.5-14.5) Platelet Count 423 x10^3/uL (140-400) Creatinine 1.1 mg/dL (0.6-1.0) Estimated GFR (Cockcroft-Gault) 47.7 Imaging 2 view xrays of the left hip performed post-operatively on 12/01 to include AP and Lateral reviewed today. Orthopedic hardware status post left hip hemiarthroplasty in satisfactory alignment with no acute post-op abnormalities noted. Assessment Assessment 81 y/o F severe DJD L hip Avascular necrosis L hip Pathalogic fracture left femoral neck * s/p L hip hemiarthroplasty 12/01 - Geovani * WBAT LLE * Pain control * DVT ppx (Lovenox) * Post-op abx (Cefazolin) * Encourage use of IS while awake * PT/OT for mobilization, gait training, fall prevention * AL hip precautions x6 weeks post-op * Maintain surgical dressings; surgical dressing should be removed on POD#7. Keep incision covered at all times until the first post-op follow up appointment. * ICE operative extremity prn pain/discomfort * Hgb 9.0 this AM; VSS * Surgical pathology 12/01 pending at this time * CM for discharge planning; awaiting therapy recs post-op; once patient is medically stable from hospitalist standpoint she may be discharged to SNF * Follow up with orthopedics in 2 weeks following discharge from the hospital. Call to schedule appointment. [phone]. From orthopedic standpoint recommend follow up with PCP/Oncology regarding primary/metastatic CA workup on outpatient basis. Justicifation of Admission Dx: Justifications for Admission: Justification of Admission Dx: Yes SUKUMAR PARSONS December 02, 2021 08:49
[2021-12-02] MEDS: IV NORMAL SALINE 1000ML BAG 1,000 ML IV SCH (09:00)
[2021-12-02] MEDS ORDERED: NON FORMULARY ITEM (Pravastatin Sodium 40 MG) PO SCH (09:00)
--- NOTE | 2021-12-02 09:47 | PDOC ---
[employer] PROGRESS NOTE Date of Service DOS: DATE: 12/02/21 TIME: 09:45 Chief Complaint Chief Complaint Postop day 1 left hip nailing Abnormal left hip bone and muscle suspect possible cancer with pathological fracture hyperlipidemia, hypertension, chronic pain, muscle spasms History of Present Illness History of Present Illness 12/02/2021 Patient seen and examined Discussed with RN Chart reviewed Discussed with case management We are still awaiting pathology report I did speak with Dr. Olivo yesterday he is concerned that left hip probably has cancer and it I am going to go ahead and consult hematology oncology Vitals/I&O Vitals/I&O: Vital Signs Date Time Temp Pulse Resp B/P (MAP) Pulse Ox O2 Delivery O2 Flow Rate FiO2 12/02/21 08:22 88 139/50 12/02/21 07:00 98.7 16 96 Room Air 98.7 12/01/21 09:36 2.0 I & O 12/01/21 12/01/21 12/02/21 15:00 23:00 07:00 Intake Total 650 ml 240 ml 240 ml Output Total 250 ml Balance 400 ml 240 ml 240 ml Physical Exam General: Alert Heart: Regular rate Lungs: Clear Abdomen: Normal bowel sounds Extremities: Other (Left hip with clean dry intact dressing) Skin: No rashes Labs Labs: Laboratory Tests Test 12/02/21 07:05 White Blood Count 11.1 x10^3/uL (4.0-11.0) Red Blood Count 3.11 x10^6/uL (3.50-5.40) Hemoglobin 9.0 g/dL (12.0-15.5) Hematocrit 27.2 % (36.0-47.0) Mean Corpuscular Volume 87 fL (79-100) Mean Corpuscular Hemoglobin 29 pg (25-35) Mean Corpuscular Hemoglobin Concent 33 g/dL (31-37) Red Cell Distribution Width 13.3 % (11.5-14.5) Platelet Count 423 x10^3/uL (140-400) Creatinine 1.1 mg/dL (0.6-1.0) Estimated GFR (Cockcroft-Gault) 47.7 Assessment and Plan Assessmemt and Plan Postop day 1 left hip nailing Abnormal left hip bone and muscle suspect possible cancer with pathological fracture hyperlipidemia, hypertension, chronic pain, muscle spasms Plan Await pathology report Consult oncology Wound care PT OT if possible DVT prophylaxis Trend labs Encourage p.o. intake Home meds Full code Long-term prognosis guarded She might need to go to snf eventually Comment Review of Relevant I have reviewed the following items huang (where applicable) has been applied. Medications: Current Medications Medications (Trade) Dose Ordered Sig/Kelly Route PRN Reason Start Time Stop Time Status Last Admin Dose Admin Senna/Docusate Sodium (Senna Plus) 1 tab DAILY PO 12/01/21 12:00 12/02/21 08:22 Acetaminophen (Tylenol) 1,000 mg Q6H PO 12/02/21 09:00 12/02/21 08:23 Cefazolin Sodium/ Dextrose 50 ml @ 100 mls/hr Q6H IV 12/01/21 13:00 12/02/21 01:29 DC 12/02/21 01:03 Amlodipine Besylate (Norvasc) 5 mg DAILY PO 12/02/21 09:00 12/02/21 08:22 Aspirin (Aspirin Chewable) 81 mg DAILY PO 12/02/21 09:00 12/02/21 08:22 Estradiol (Estrace) 0.5 mg DAILY PO 12/02/21 09:00 12/02/21 08:23 Venlafaxine HCl (Effexor Xr) 75 mg DAILY PO 12/02/21 09:00 12/02/21 08:22 Justifications for Admission Other Justification SHAKA AMADO III DO December 02, 2021 09:47
[2021-12-02 15:00] VITALS: BP 115/43
[2021-12-02] MEDS ORDERED: BISACODYL 10 MG SUPP.RECT. PR PRN (16:00)
[2021-12-02] MEDS: oxyCODONE IR 5 MG TABLET PO PRN (16:05)
[2021-12-02 19:25] VITALS: BP 119/47
[2021-12-02 23:09] VITALS: BP 146/51
[2021-12-03] MEDS: oxyCODONE IR 5 MG TABLET PO PRN ×4 (00:47→13:31)
[2021-12-03 03:06] VITALS: BP 160/67
[2021-12-03] MEDS: ACETAMINOPHEN 500 MG TABLET PO SCH ×3 (03:10→15:00)
[2021-12-03] MEDS: ENOXAPARIN 30 MG/0.3 ML SYRINGE. SQ SCH (05:04)
--- NOTE | 2021-12-03 05:15 | NUR ---
Patient has rested this shift, refused abductor pillow but keeping pillow between legs to keep from crossing. Pain medications given per order as needed. Assisted patient to restroom as needed. Call light remains in reach.
--- NOTE | 2021-12-03 06:47 | PDOC ---
PROGRESS NOTES Date of Service DATE: 12/03/21 TIME: 06:47 Subjective Subjective POD #2 s/p L hip hemiarthroplasty Patient seen and examined this morning. Resting complaint bed. Arousable. Pain appears to be controlled. Tolerating p.o. intake postoperatively. No family at bedside. No acute events reported overnight. Objective Vital Signs Vital Signs Date Time Temp Pulse Resp B/P (MAP) Pulse Ox O2 Delivery O2 Flow Rate FiO2 12/03/21 05:34 Room Air 12/03/21 05:04 18 95 12/03/21 03:06 98.7 104 160/67 (98) 98.0 98.7 Physical Exam Orthopedic examination of the left hip: Surgical dressing intact. no drainage/discharge. Compartment soft and distensible. Cap refill brisk. Left lower extremity warm and perfused. EHL/FHL intact. Plantarflexion/dorsiflexion intact. Sensation to light touch intact throughout all dermatomes. Calf nont renaldo. Negative Homans. No evidence of thrombus. Labs Laboratory Tests Test 12/02/21 07:05 White Blood Count 11.1 x10^3/uL (4.0-11.0) Red Blood Count 3.11 x10^6/uL (3.50-5.40) Hemoglobin 9.0 g/dL (12.0-15.5) Hematocrit 27.2 % (36.0-47.0) Mean Corpuscular Volume 87 fL (79-100) Mean Corpuscular Hemoglobin 29 pg (25-35) Mean Corpuscular Hemoglobin Concent 33 g/dL (31-37) Red Cell Distribution Width 13.3 % (11.5-14.5) Platelet Count 423 x10^3/uL (140-400) Creatinine 1.1 mg/dL (0.6-1.0) Estimated GFR (Cockcroft-Gault) 47.7 Laboratory Tests Test 12/02/21 07:05 White Blood Count 11.1 x10^3/uL (4.0-11.0) Red Blood Count 3.11 x10^6/uL (3.50-5.40) Hemoglobin 9.0 g/dL (12.0-15.5) Hematocrit 27.2 % (36.0-47.0) Mean Corpuscular Volume 87 fL (79-100) Mean Corpuscular Hemoglobin 29 pg (25-35) Mean Corpuscular Hemoglobin Concent 33 g/dL (31-37) Red Cell Distribution Width 13.3 % (11.5-14.5) Platelet Count 423 x10^3/uL (140-400) Creatinine 1.1 mg/dL (0.6-1.0) Estimated GFR (Cockcroft-Gault) 47.7 Assessment Assessment 81 y/o F severe DJD L hip Avascular necrosis L hip Pathalogic fracture left femoral neck * s/p L hip hemiarthroplasty 12/01 - Geovani * WBAT LLE * Pain control * DVT ppx (Lovenox); defer to hospitalist regarding DVT ppx at time of discharge * Post-op abx complete * Encourage use of IS while awake * PT/OT for mobilization, gait training, fall prevention * AL hip precautions x6 weeks post-op * Maintain surgical dressings; surgical dressing should be removed on POD#7. Keep incision covered at all times until the first post-op follow up appointment. * ICE operative extremity prn pain/discomfort * Hgb 9.0 post-op 12/02; VSS * Surgical pathology 12/01 pending at this time * CM for discharge planning;orthopedically stable for discharge. * Follow up with orthopedics in 2 weeks following discharge from the hospital. Call to schedule appointment. [phone]. From orthopedic standpoint recommend follow up with PCP/Oncology regarding primary/metastatic CA workup on outpatient basis. Justicifation of Admission Dx: Justifications for Admission: Justification of Admission Dx: Yes SUKUMAR PARSONS December 03, 2021 06:47
[2021-12-03 07:30] VITALS: BP 105/69
[2021-12-03] MEDS: SENNOSIDES/DOCUSATE 8.6/50MG TABLET. PO SCH (08:10)
[2021-12-03] MEDS: ESTRADIOL 1 MG TABLET. PO SCH (08:10)
[2021-12-03] MEDS: ASPIRIN CHEWABLE 81 MG TABLET. PO SCH (08:11)
[2021-12-03] MEDS: VENLAFAXINE XR 37.5 MG CAP.ER.24H. PO SCH (08:11)
[2021-12-03] MEDS ORDERED: fentaNYL 100MCG/HR PATCH 1 PATCH PATCH TD SCH (09:00)
[2021-12-03] MEDS: IV NORMAL SALINE 1000ML BAG 1,000 ML IV SCH (09:00)
[2021-12-03] MEDS ORDERED: FENT1PAT19 TP (09:41)
[2021-12-03] MEDS ORDERED: fentaNYL 75MCG/HR PATCH 1 PATCH PATCH.TD72 TD SCH (10:00)
[2021-12-03] MEDS ORDERED: OXYC5TAB4 PO (10:09)
--- NOTE | 2021-12-03 10:12 | SNU/HH DC ---
DISCHARGE WITH HOME HEALTH DISCHARGE INFORMATION: Condition on Discharge: Stable CODE STATUS: Code Status: Full HOME HEALTH: Face to Face: I certify this patient is under my care and that I, or a nurse practitioner or physician's assistant manager/embalmer working with me, had a face to face encounter that meets the physician face to face encounter requirements with this patient on []. Medical Complications: Other (Recent hip fracture possible cancer awaiting pathology report) Senior Care For: Assess & Educate Safety RN For Eval/Treatment: Yes Physical Therapy For: Evalulation/Treatment Occupational Therapy For: Evaluation/Treatment Home Health Aide For: Self-care BOOKKEEPER ASSISTANT For: Community Resources Pt Meets Homebound Status: Poor coordination w/ amb. POST DISCHARGE ORDERS: Activity Instructions for Disc: Activity as tolerated DIET AFTER DISCHARGE: Cardiac Wound/Incision Care: Other, see below CERTIFICATION STATEMENT: Certification Statement: Certification Statement: Based on the above finding, I certify that this patient is confined to the home and needs intermittent snf care, physical therapy and/or speech therapy, or continues to need occupational therapy.~ This patient is under my care, and I have initiated the establishment of the plan of care.~ This patient will be followed by myself or a community physician who will periodically review the plan of care. Home Meds Active Scripts Oxycodone Hcl (OXYCODONE HCL IMMED.RELEASE ) 5 Mg Tablet, 5 MG PO PRN Q4HRS PRN for Pain score 4-6 for 10 Days, #20 TAB Prov:CHEKO AMADOL K III DO 12/03/21 Reported Medications Fentanyl (FENTANYL 75mcg/hr) 1 Each Patch.td72, 1 PATCH TP Q3DAYS for chronic back pain, #10 PATCH 12/03/21 Cholecalciferol (Vitamin D3) (Vitamin D3) 50 Mcg Capsule, 50 MCG PO DAILY for SUPPLEMENT, CAP 11/11/21 Amlodipine Besylate (AMLODIPINE BESYLATE) 5 Mg Tablet, 5 MG PO DAILY for ., TAB 11/11/21 Venlafaxine Hcl (VENLAFAXINE HCL ER) 75 Mg Cap.er.24h, 1 CAP PO DAILY for MOOD, #90 CAP 3 Refills 11/11/21 Pravastatin Sodium (PRAVASTATIN SODIUM) 40 Mg Tablet, 40 MG PO DAILY for HIGH CHOLESTEROL, TAB 04/20/21 Losartan Potassium (LOSARTAN POTASSIUM) 100 Mg Tablet, 100 MG PO DAILY for HYPERTENSION, TAB 04/20/21 Aspirin (ASPIRIN) 81 Mg Tab.chew, 81 MG PO DAILY, TAB.CHEW 02/26/14 Estradiol (ESTRADIOL) 0.5 Mg Tablet, 0.5 MG PO DAILY 02/26/14 Discontinued Reported Medications Fentanyl (FENTANYL 100mcg/hr) 1 Each Patch.td72, 1 EACH TD Q72H, PATCH 02/26/14 SHAKA AMADO III DO December 03, 2021 10:11
--- NOTE | 2021-12-03 10:13 | PDOC ---
[employer] [facility] PROGRESS NOTE Date of Service DOS: DATE: 12/03/21 TIME: 10:12 Chief Complaint Chief Complaint Postop day 1 left hip nailing Abnormal left hip bone and muscle suspect possible cancer with pathological fracture hyperlipidemia, hypertension, chronic pain, muscle spasms History of Present Illness History of Present Illness 12/03/2021 Patient seen and examined Discussed with RN Chart reviewed Discussed with case management I called pathology the report is still pending they may call me later if it comes in Will discharged home with home health 12/02/2021 Patient seen and examined Discussed with RN Chart reviewed Discussed with case management We are still awaiting pathology report I did speak with Dr. Olivo yesterday he is concerned that left hip probably has cancer and it I am going to go ahead and consult hematology oncology Vitals/I&O Vitals/I&O: Vital Signs Date Time Temp Pulse Resp B/P (MAP) Pulse Ox O2 Delivery O2 Flow Rate FiO2 12/03/21 09:54 Room Air 12/03/21 08:17 91 164/60 12/03/21 07:30 98.3 16 96 98.3 12/03/21 03:06 98.0 I & O 12/02/21 12/02/21 12/03/21 15:00 23:00 07:00 Intake Total 240 ml 170 ml 440 ml Balance 240 ml 170 ml 440 ml Physical Exam General: Alert Heart: Regular rate Lungs: Clear Abdomen: Normal bowel sounds Extremities: Other (Left hip with clean dry intact dressing) Skin: No rashes Assessment and Plan Assessmemt and Plan Postop day 2 left hip nailing Abnormal left hip bone and muscle suspect possible cancer with pathological fracture hyperlipidemia, hypertension, chronic pain, muscle spasms Plan Discharge home with home health later today For now continue the following; Await pathology report Wound care PT OT if possible DVT prophylaxis Trend labs Encourage p.o. intake Home meds Full code Long-term prognosis guarded She might need to go to longterm eventually Comment Review of Relevant I have reviewed the following items huang (where applicable) has been applied. Medications: Current Medications Medications (Trade) Dose Ordered Sig/Kelly Route PRN Reason Start Time Stop Time Status Last Admin Dose Admin Fentanyl (Duragesic 100mcg/Hr Patch) 1 patch Q72H TD 12/03/21 09:00 12/03/21 09:48 DC 12/03/21 08:12 Fentanyl (Duragesic 75mcg/ Hr Patch) 1 patch Q3DAYS TD 12/03/21 10:00 12/03/21 09:54 Justifications for Admission Other Justification SHAKA AMADO III DO December 03, 2021 10:13
[2021-12-03 11:07] VITALS: BP 146/56
[2021-12-03] MEDS ORDERED: WARF2TAB96 PO (12:35)
[2021-12-03] MEDS ORDERED: APIX2.5T PO (13:21)
[2021-12-03 15:09] VITALS: BP 129/77
--- NOTE | 2021-12-03 16:40 | NUR ---
Discharge instructions given to patient and 2 sons. Answered questions and concerns. All them verbalized understanding. Pt discharged home with home health. Escorted out by w/c.
[2021-12-04] MEDS ORDERED: APIXABAN 2.5 MG TABLET. PO SCH (09:00)
--- NOTE | 2021-12-04 13:45 | DS ---
DATE OF DISCHARGE: 12/03/2021 ADMITTING DIAGNOSIS: Hip fracture. DISCHARGE DIAGNOSES: 1. Postoperative day #3 left hip hemiarthroplasty. 2. Possible malignancy causing a pathological fracture. 3. Hyperlipidemia. 4. Hypertension. 5. Chronic pain. 6. Muscle spasms. HOSPITAL COURSE: The patient is a pleasant elderly female who fell and broke her hip. We consulted Dr. Olivo. He took her to surgery. When he got into the hip, he discovered the bone was quite frail and falling apart and was degenerative. He was concerned there might be a malignancy. The gluteal muscles were also oneal. Postoperatively, she did well. Yesterday, I saw and examined her. She wanted to go home. We are awaiting the pathology report. We are going to discharge with close outpatient followup. DISPOSITION: Home. ACTIVITY: As tolerated. DIET: Low sodium. DISCHARGE MEDICATIONS: Please see the MRAD. TOTAL TIME: [address]: Juan TID: [id number]
--- NOTE | 2021-12-07 17:12 | PATHOLOGY ---
[facility] Accession Number: [id number] . 01 Material submitted: . PART A: femur - FEMORAL HEAD AND BONE PART B: hip - LEFT HIP TISSUE . 01 Clinical history: . PRIMARY OSTEOARTHRITIS SURGEON SUSPECTS THAT THERE MAY BE METASTATIC CARCINOMA PLEASE GENEROUSLY SUBMIT DEAN OF WOMEN SECTIONS FROM BOTH SPECIMENS . 02 Diagnosis: A. Multiple segments of bone, articular cartilage, and soft tissue, left femoral head and bone: - Prominent areas of fragmentation of bony trabeculae and cartilage with osteonecrosis and marrow necrosis consistent with fracture, with foci of granulation tissue, reactive fibrosis, and reactive bone formation. - Focal calcific deposits within fibrocartilaginous tissue consistent with calcium pyrophosphate. - Degenerative arthritis. . B. Segments of fibrocartilaginous, synovial, and fibroadipose tissue, articular cartilage, and bone, left hip tissue: - Focal fragmentation of bony trabeculae and cartilage with osteonecrosis and marrow necrosis consistent with fracture, with focal granulation tissue, reactive fibrosis and reactive bone formation. - Degenerative changes of fibrocartilaginous tissue with focal calcific deposits consistent with calcium pyrophosphate. (JPM:pit; 12/07/2021) [facility] 12/07/2021 1626 Local . 02 Comment: Properly controlled immunoperoxidase stains for AE1/AE3 are obtained and yield the following results: AE1/AE3 (A1): Negative for metastatic carcinoma AE1/AE3 (A4): Negative for metastatic carcinoma . The findings are consistent with a fracture with associated osteonecrosis and marrow necrosis and reactive changes. There is no evidence of metastatic carcinoma. . The results are reported to Dr. De La Cruz and to Dr. Geovani Donahue's PA on 12/06/2021 at approximately 4:00 pm. (JPM:pit; 12/07/2021) . Special stain performed: AE1/AE3 on A1 and A4. . 02 Electronically signed: . Moustapha David MD, Pathologist NPI- [id number] . 01 Gross description: . A. The specimen is received in formalin, labeled "Heidy, Tianna, left femoral head and bone" with a note on the requisition that reads as follows: "note: surgeon suspects that there may be metastatic carcinoma. Please generously submit sales and merchandising representative sections from both specimens. There are arthritic changes." . The specimen consists of multiple previously heavily fragmented, bravo-oneal to brown, soft, focally rubbery and minimally hard bone fragments aggregating 8.2 x 8.0 x 2.4 cm, the largest of which measures 4.3 x 2.9 x 2.4 cm. Sectioning through the largest tissue fragment reveals bravo-donaldson, predominantly hard, and focally softened and granular cut surfaces without a discrete lesion. Sectioning through the smaller fragments reveals bravo-brown, granular and focally softened cut surfaces. No obvious areas of eburnation, osteophytic growths or discrete lesions are definitively identified. Photographs are taken. [employer] sections are submitted in 10 cassettes following treatment in immunocal of all cassettes. . B. The specimen is received in formalin, labeled "Moody, Tianna, left hip tissue" with a note on the requisition that reads as follows: "note: surgeon suspects that there may be metastatic carcinoma. Please generously submit sales and merchandising representative sections from both specimens. There are arthritic changes." . The specimen consists of multiple brown-bravo to donaldson, rubbery and soft, irregularly shaped tissues aggregating 7.0 x 6.9 x 1.8 cm with portions of dusky and focally hemorrhagic fat. Sectioning reveals bravo-brown, rubbery unremarkable cut surfaces without a discrete lesion but with focal areas of pin-point and ill-defined, bravo-white areas of discoloration (ranging from 0.2 x 0.1 x 0.1 cm to approximately 0.5 x 0.4 x 0.3). Photographs are taken. Automatic Head Sawyer sections are submitted in 7 cassettes following treatment in Immunocal of B2-B7 and areas of discoloration represented in B6-B7. (WRANGELL; 12/02/2021) DKA/DKA 12/02/2021 1306 Local . 02 Pathologist provided ICD-10: M87.852, M16.12 . 02 CPT . 983091, 905901, [id number] Specimen Comment: A courtesy copy of this report has been sent to [phone] Specimen Comment: Report sent to Performed at: 01 [facility] [address] [id number] MD Jan Hernández MD Phone: [phone] Performed at: 02 [facility] [address] [place], [place] [id number] MD Moustapha David MD Phone: [phone]
== END 2021-12-03 16:40 | disposition home health service (06) ==
LOC: SURG 05:44 → 4 NORTH 08:51 → INTOOBSV 08:51
PROVIDERS: ADMIT Orthopaedic Surgery; ATTEND Orthopaedic Surgery
DX: S72.002A Fracture of unspecified part of neck of left femur, initial encounter for closed fracture (principal); Z20.822 Contact with and (suspected) exposure to COVID-19; I10 Essential (primary) hypertension; E78.5 Hyperlipidemia, unspecified; G89.29 Other chronic pain; M16.12 Unilateral primary osteoarthritis, left hip; M87.88 Other osteonecrosis, other site; M87.9 Osteonecrosis, unspecified; W19.XXXA Unspecified fall, initial encounter; Y92.89 Other specified places as the place of occurrence of the external cause; Y93.89 Activity, other specified; Y99.8 Other external cause status
CPT/HCPCS: 36415; 73502; 82565; 85027; 86850; 86900; 86901; 88304; 88342; 96365; 96366; 96372; 96375; 96376; A4213; A4930; A6258; A6550; C1776; G0378; G0379; J0171; J0690; J1100; J1650; J1885; J2270; J2405; J2704; J2710; J2795; J3010; J3370; J3490; J7030; 97116-GP; 97150-GP; 97530-GP; 97535-GO